=== PATIENT | female | born 1970 | race Asian ===

== ENCOUNTER 2020-05-19 19:51 | Inpatient (IN) | payer OTHER ==
[~2020-05-19] VITALS: Ht 152.4 cm; Wt 66.5 kg
[2020-05-19] MEDS ORDERED: ASCORBIC ACID 500 MG TAB PO ONE (20:15)
[2020-05-19] MEDS ORDERED: AZITHROMYCIN 500MG/ 250ML 250 ML IV ONE (20:15)
[2020-05-19] MEDS ORDERED: PANTOPRAZOLE 40 MG/10 ML VIAL INJ IV ONE (20:15)
[2020-05-19] MEDS ORDERED: ZINC SULFATE 220mg CAP or TAB PO ONE (20:15)
[2020-05-19] MEDS ORDERED: methylPREDNISolone SOD SUCC 125 MG/2 ML VL IV ONE (20:15)
[2020-05-19] MEDS ORDERED: ACETAMINOPHEN 500 MG TAB PO ONE (21:14)
[2020-05-19] MEDS ORDERED: SODIUM CHLORIDE 0.9% 1,000 ML IV SCH (22:12)
[2020-05-19] MEDS ORDERED: ACETAMINOPHEN 325 MG TAB PO PRN (22:15)
[2020-05-19] MEDS ORDERED: NITROGLYCERIN 0.4 MG SL TAB SL PRN (22:15)
[2020-05-19] MEDS ORDERED: TEMAZEPAM 15 MG CAP PO PRN (22:15)
[2020-05-19] MEDS ORDERED: ONDANSETRON HCL 4 MG/2 ML VIAL IV PRN (22:15)
[2020-05-19] MEDS ORDERED: MORPHINE SULF INJ 2 MG/ML SYRINGE 1ML IV PRN (22:15)
[2020-05-19 22:30] LABS: Basophils # (auto) 0 10 ^3/uL (0-0.2); Basophils % (auto) 0.2 % (0.0-2.0); Eosinophils # (auto) 0 10 ^3/uL (0-0.8); Hematocrit 43.8 % (36.0-46.0); Hemoglobin 14.7 g/dL (12.2-16.2); Lymphocytes # (auto) 0.9 10 ^3/uL (0.4-5.4); Lymphocytes % (auto) 12.1 % (10.0-50.0); Mean Corpuscular Hemoglobin 29.7 pg (28.0-32.0); Mean Corpuscular Hgb Conc. 33.5 g/dL (32.0-36.0); Mean Corpuscular Volume 88.5 fL (80.0-100.0); Monocytes # (auto) 0.4 10 ^3/uL (0-1.3); Monocytes % (auto) 5.6 % (0.0-12.0); Neutrophils # (auto) 6.3 10 ^3/uL (1.6-8.6); Neutrophils % (auto) 82.1 % (37.0-80.0); Nucleated Red Blood Cells % 0.1 %; Platelet Count (auto) 222 10^3/uL (140-450); Red Blood Cells 4.95 10^6/uL (4.0-5.20); Red Cell Distribution Width 13.1 % (11.8-14.3); White Blood Cell 7.6 10^3/uL (4.4-10.8)
[2020-05-19 22:49] LABS: Albumin 3.3 g/dL (3.4-5.0); Calcium 8.5 mg/dL (8.5-10.1); Potassium 3.2 mmol/L (3.5-5.1)
[2020-05-19 22:58] LABS: BUN/Creatinine Ratio 8.3; Bilirubin, Total 0.5 mg/dL (0.2-1.0); CRP High Sensitivity 9.78 mg/dL (< 0.3)
[2020-05-19] MEDS ORDERED: POTASSIUM CHL 20 Meq TABLET PO ONE (23:15)
[2020-05-20] VITALS (8 sets, daily range): BP systolic 99–147; BP diastolic 64–75
[2020-05-20] MEDS ORDERED: ACETAMINOPHEN 325 MG TAB PO ONE
--- NOTE | 2020-05-20 00:20 | NUR ---
Telemetry admit from ER DE BROWN admitted to Telemetry unit after SBAR received. Patient oriented to JOSEPH PINA, RN primary RN, unit, room, bed, and unit policies regarding patient care and visiting hours. Patient now on continuous telemetry monitoring, tele box # [id number] and telemetry reading on arrival to unit is sinus rhythm in the 90s. Patient placed on bedside oxygen 2L, weighed by bedscale and encouraged to call if they need something. All questions and concerns addressed, patient verbalized understanding.
--- NOTE | 2020-05-20 01:00 | NUR ---
PATIENT VERBALIZED THAT SHE HAS TAKES NO HOME MEDICATIONS AND HAS NO RELEVANT FAMILY HISTORY
--- NOTE | 2020-05-20 02:00 | NUR ---
MD Called/paged Hospitalist called. Waiting for call back. Continue care.
--- NOTE | 2020-05-20 02:56 | NUR ---
returned call Hospitalist Ricco Torres returned call, updated on patient status and reason for call, orders received and verified. Continue care.
[2020-05-20] MEDS: ALBUTEROL SULF HFA 90MCG INH 200DOSE IN SCH ×3 (07:07→21:52)
--- NOTE | 2020-05-20 07:18 | NUR ---
CLOSING SHIFT NOTE ENDORSED CARE TO DAY SHIFT RN
[2020-05-20 07:31] LABS: Basophils # (auto) 0 10 ^3/uL (0-0.2); Basophils % (auto) 0.1 % (0.0-2.0); Eosinophils # (auto) 0 10 ^3/uL (0-0.8); Hematocrit 43.2 % (36.0-46.0); Hemoglobin 14.7 g/dL (12.2-16.2); Lymphocytes # (auto) 0.4 10 ^3/uL (0.4-5.4); Lymphocytes % (auto) 4.5 % (10.0-50.0); Mean Corpuscular Hemoglobin 30.2 pg (28.0-32.0); Mean Corpuscular Volume 88.7 fL (80.0-100.0); Monocytes # (auto) 0.2 10 ^3/uL (0-1.3); Monocytes % (auto) 1.9 % (0.0-12.0); Neutrophils # (auto) 8.9 10 ^3/uL (1.6-8.6); Neutrophils % (auto) 93.5 % (37.0-80.0); Platelet Count (auto) 237 10^3/uL (140-450); Red Blood Cells 4.88 10^6/uL (4.0-5.20); Red Cell Distribution Width 13.3 % (11.8-14.3); White Blood Cell 9.5 10^3/uL (4.4-10.8)
[2020-05-20 07:43] LABS: Albumin 3.1 g/dL (3.4-5.0); Calcium 8.7 mg/dL (8.5-10.1); Potassium 3.3 mmol/L (3.5-5.1)
[2020-05-20 07:46] LABS: Bilirubin, Total 0.5 mg/dL (0.2-1.0); Total Protein 8.1 g/dL (6.4-8.2)
--- NOTE | 2020-05-20 08:00 | NUR ---
ASSESSMENT NOTE PT IS ALERT ORIENTED X4, RESTING IN BED COMFORTABLY, GENERALIS WEAKNESS NOTED, ABLE TO SELF REPOSITION A ND VERBALIS HER DEMANDS, OXYGEN 1 L NC, PAIN 0/10 AT THIS TIME, CALL LIGHT WITHIN REACH
--- NOTE | 2020-05-20 08:30 | NUR ---
ROOM AIR SATURATION IS 89 TO 91 % ON OXYGEN 1 L NC PT SAT AT 95-96 %
[2020-05-20] MEDS: DexAMETHasone SOD PHOS 10MG/1ML VIAL INJ IV SCH (09:47)
[2020-05-20] MEDS: DOXYCYCLINE 100MG/250ML 250 ML IV SCH ×2 (09:47→22:13)
[2020-05-20] MEDS: ZINC SULFATE 220mg CAP or TAB PO SCH (09:47)
[2020-05-20] MEDS: FAMOTIDINE 20 MG TAB PO SCH ×2 (09:48→22:13)
[2020-05-20] MEDS: ASCORBIC ACID 1,000 MG TAB PO SCH (09:48)
[2020-05-20] MEDS: ENOXAPARIN SOD 40 MG/0.4 ML SYRINGE SC SCH (09:48)
[2020-05-20] MEDS: CHOLECALCIFEROL (VITD3) 2,000 UNIT CAP PO SCH (09:48)
--- NOTE | 2020-05-20 10:00 | NUR ---
TRANSFER PT TO ROOM 2445, IN NEED TO USE THE ROOM FOR ANOTHER PT TO BE CLOSE TO THE NURSING STATION
--- NOTE | 2020-05-20 10:30 | NUR ---
INCENTIVE SPIROMETER EDUCATED PT OF HOW TO USE THE IS MACHINE, EXPLAIN TO PT WHY, VERBALIS UNDERSTANDING
--- NOTE | 2020-05-20 13:10 | NUR ---
DR BLEDSOE AT BED SIDE FOLLOWING UP ON PT, AWARE OF PT VS, LABS, SATURATIONS
--- NOTE | 2020-05-20 14:00 | NUR ---
PT IS INCONTINENT IN URINE, STATED WHEN I COUGH , IT JUST COME OUT> NEW ABSORBANT PADS GIVEN TO PT
[2020-05-20] MEDS ORDERED: POTASSIUM EFFERVESENT TAB 25 MEQ GT ONE (18:45)
--- NOTE | 2020-05-20 18:50 | NUR ---
PT CONTINUE STABLE, CONTINUE MONITORING
--- NOTE | 2020-05-20 19:25 | NUR ---
OPENING SHIFT NOTE: Assumed care of patient. Patient awake, alert and oriented x 4. No s/s of SOB or distress, patient denies pain complains of feeling fatigued. Respirations even and unlabored, O2 saturation 96% on 1L NC. Bed in lowest locked position with two side rails raised and call ward within reach. Instructed on POC and encouraged to call for assistance, all questions and concerns addressed, patient verbalizes understanding. Will continue to monitor Q1 hr and PRN.
--- NOTE | 2020-05-20 23:30 | NUR ---
PATIENT HAVING COUGHING FIT AND STATES "I CAN'T BREATHE", O2 SATURATION 90% ON 1L NC AND RESPIRATIONS 38 BPM, INCREASED O2 TO 4L NC AND INSTRUCTED PATIENT TO SELF PRONE. AFTER SELF PRONING PATIENT VERBALIZES REDUCED SOB AND COUGHING. O2 SATURATION 95% AND RESPIRATIONS 28 BPM, WILL CONTINUE TO MONITOR.
[2020-05-21 05:00] VITALS: BP 100/60
[2020-05-21] MEDS: ALBUTEROL SULF HFA 90MCG INH 200DOSE IN SCH ×3 (06:46→21:27)
[2020-05-21 07:17] LABS: Basophils # (auto) 0 10 ^3/uL (0-0.2); Basophils % (auto) 0.1 % (0.0-2.0); Eosinophils # (auto) 0 10 ^3/uL (0-0.8); Hematocrit 42.5 % (36.0-46.0); Hemoglobin 13.9 g/dL (12.2-16.2); Lymphocytes # (auto) 1.1 10 ^3/uL (0.4-5.4); Lymphocytes % (auto) 8.6 % (10.0-50.0); Mean Corpuscular Hemoglobin 29.1 pg (28.0-32.0); Mean Corpuscular Hgb Conc. 32.8 g/dL (32.0-36.0); Mean Corpuscular Volume 88.7 fL (80.0-100.0); Monocytes # (auto) 0.6 10 ^3/uL (0-1.3); Monocytes % (auto) 5.2 % (0.0-12.0); Neutrophils # (auto) 10.7 10 ^3/uL (1.6-8.6); Neutrophils % (auto) 86.1 % (37.0-80.0); Nucleated Red Blood Cells % 0.1 %; Platelet Count (auto) 265 10^3/uL (140-450); Red Blood Cells 4.79 10^6/uL (4.0-5.20); Red Cell Distribution Width 13.3 % (11.8-14.3); White Blood Cell 12.4 10^3/uL (4.4-10.8)
[2020-05-21 07:31] LABS: Calcium 8.5 mg/dL (8.5-10.1); Potassium 3.6 mmol/L (3.5-5.1)
[2020-05-21 07:33] LABS: BUN/Creatinine Ratio 14.3
--- NOTE | 2020-05-21 08:00 | NUR ---
ASSESSMENT NOTE PT IS ALERT ORIENTED X4, RESTING IN BED IN LOW IGNACIO POSITION, PT APPEAR VERY FATIGUE AND WEAK, PT STATED I FEEL VERY TIRED >, OCCASIONAL COUGH NOTED, PT MADE AWARE THAT THE HOSPITAL LIST WILL BE HERE SOON AND I WILL GET FOR HER A COUGH MEDICINE, PAIN 0/10, PT CONTINUE INCONTINENT IN URINE AT ALL TIMES, STATED EVERY TIME I COUGH, THIS IS HAPPENED, I NEED SOMETHING FOR IT > SUPPORT GIVEN TO PT, CONTINUE ON FALL RISK PRECAUTIONS, CALL LIGHT WITHIN REACH
[2020-05-21 09:00] VITALS: BP 98/65
[2020-05-21] MEDS: DOXYCYCLINE 100MG/250ML 250 ML IV SCH ×2 (09:45→21:39)
[2020-05-21] MEDS: DexAMETHasone SOD PHOS 10MG/1ML VIAL INJ IV SCH (09:45)
[2020-05-21] MEDS: ZINC SULFATE 220mg CAP or TAB PO SCH (09:45)
[2020-05-21] MEDS: ENOXAPARIN SOD 40 MG/0.4 ML SYRINGE SC SCH (09:46)
[2020-05-21] MEDS: CHOLECALCIFEROL (VITD3) 2,000 UNIT CAP PO SCH (09:46)
[2020-05-21] MEDS: ASCORBIC ACID 1,000 MG TAB PO SCH (09:46)
[2020-05-21] MEDS: FAMOTIDINE 20 MG TAB PO SCH ×2 (09:46→21:39)
[2020-05-21] MEDS: guaiFENesin-CODEINE Liq 5 ML UD GT PRN ×2 (10:55→21:40)
--- NOTE | 2020-05-21 11:20 | NUR ---
DR BLEDSOE AT BED SIDE FOLLOWING UP ON PT, SUPPORT PT ABOUT THE STRESS INCONTINENT, INFORM PT THAT IT WILL GET BETTER WHEN SHE START FEELING WELL
--- NOTE | 2020-05-21 11:51 | NUR ---
PT OUT OF BED, SITTING ON CHAIR AT BED SIDE
[2020-05-21 13:00] VITALS: BP 97/66
--- NOTE | 2020-05-21 13:00 | NUR ---
PT IS BACK TO BED, NO DISTRESS NOTED, CONTINUE MONITORING
[2020-05-21 16:46] VITALS: BP 98/66
--- NOTE | 2020-05-21 17:00 | NUR ---
PT IS RESTING IN BED, CONTINUE FEELING WEAK, DENIES ANY COUGH AT THIS TIME
--- NOTE | 2020-05-21 18:41 | NUR ---
PT IS SITTING UP EATING DINNER, NO DISTRESS NOTED, CONTINUE MONITORING
--- NOTE | 2020-05-21 18:56 | NUR ---
URINE SAMPLE SENT TO LAB
--- NOTE | 2020-05-21 18:56 | NUR ---
PT CONTINUE TABLE, CONTINUE MONITORING
--- NOTE | 2020-05-21 19:12 | NUR ---
OPENING SHIFT NOTE: Assumed care of patient. Patient is awake, alert and oriented x 4, no s/s of SOB or distress, patient denies pain. Bed in lowest locked position with two side rails raised and call ward within reach. Instructed on POC and encouraged to call for assistance, all questions and concerns addressed, patient verbalizes understanding. Will continue to monitor Q1 hr and PRN.
[2020-05-21 20:00] VITALS: BP 98/62
[2020-05-21 22:00] VITALS: BP 98/62
--- NOTE | 2020-05-22 00:03 | NUR ---
IV Patient states "I feel like my arm is on fire." Left upper extremity slightly swollen, pink, and hot to the touch above IV site. Left AC 20 gauge IV discontinued using clean technique, catheter tip intact and pressure dressing applied and warm compress applied to upper arm. Patient tolerated well. New 20 gauge IV inserted to the right AC using clean technique. Patient tolerated well, will continue to monitor.
[2020-05-22 05:00] VITALS: BP 98/74
[2020-05-22 06:37] LABS: Basophils # (auto) 0 10 ^3/uL (0-0.2); Basophils % (auto) 0.1 % (0.0-2.0); Eosinophils # (auto) 0 10 ^3/uL (0-0.8); Hematocrit 40.4 % (36.0-46.0); Hemoglobin 13.2 g/dL (12.2-16.2); Lymphocytes # (auto) 1.4 10 ^3/uL (0.4-5.4); Lymphocytes % (auto) 16.3 % (10.0-50.0); Mean Corpuscular Hemoglobin 29.2 pg (28.0-32.0); Mean Corpuscular Hgb Conc. 32.7 g/dL (32.0-36.0); Mean Corpuscular Volume 89.2 fL (80.0-100.0); Monocytes # (auto) 0.8 10 ^3/uL (0-1.3); Monocytes % (auto) 9.6 % (0.0-12.0); Neutrophils # (auto) 6.2 10 ^3/uL (1.6-8.6); Nucleated Red Blood Cells % 0.1 %; Platelet Count (auto) 284 10^3/uL (140-450); Red Blood Cells 4.53 10^6/uL (4.0-5.20); Red Cell Distribution Width 13.2 % (11.8-14.3); White Blood Cell 8.4 10^3/uL (4.4-10.8)
[2020-05-22] MEDS: ALBUTEROL SULF HFA 90MCG INH 200DOSE IN SCH ×3 (06:48→22:43)
[2020-05-22 06:50] LABS: Calcium 8.6 mg/dL (8.5-10.1); Potassium 3.6 mmol/L (3.5-5.1)
[2020-05-22 06:53] LABS: BUN/Creatinine Ratio 20.4
--- NOTE | 2020-05-22 07:09 | NUR ---
URINE RESULTS FOLLOW UP THERE IS NO RESULTS NOTED, SPOKE WITH KIN IN THE LAB , SAID THAT SHE HAVE NO EXPLANATION FOR IT, CHECK ORDERS AGAIN, NOTE THAT THE ORDER BEEN DISCONTINUE WITH ER , PUT THE ORDERS BACK IN AGAIN IN THE [facility]
--- NOTE | 2020-05-22 08:00 | NUR ---
ASSESSMENT NOTE PT IS ALERT ORIENTED X4, CONTINUE FEELING VERY TIRED, ASSISTED NEEDED AT ALL TIMES, OXYGEN 2 L NC SAT AT 97%, ABLE TO SELF REPOSITION AND VERBALIS HER NEEDS, PT CONTINUE INCONTINENT IN URINE, KEPT CLEAN AND DRY AT ALL TIMES, URINE APPEAR DARK COLOR, PAIN 0/10 AT THIS TIME, CALL LIGHT WITHIN REACH
[2020-05-22 08:49] VITALS: BP 99/57
--- NOTE | 2020-05-22 09:30 | NUR ---
URINE SAMPLE SENT AGAIN TO THE LAB
[2020-05-22] MEDS: DexAMETHasone SOD PHOS 10MG/1ML VIAL INJ IV SCH (09:44)
[2020-05-22] MEDS: DOXYCYCLINE 100MG/250ML 250 ML IV SCH ×2 (09:44→21:26)
[2020-05-22] MEDS: ENOXAPARIN SOD 40 MG/0.4 ML SYRINGE SC SCH (09:45)
[2020-05-22] MEDS: CHOLECALCIFEROL (VITD3) 2,000 UNIT CAP PO SCH (09:45)
[2020-05-22] MEDS: ZINC SULFATE 220mg CAP or TAB PO SCH (09:45)
[2020-05-22] MEDS: FAMOTIDINE 20 MG TAB PO SCH ×2 (09:45→21:27)
[2020-05-22] MEDS: ASCORBIC ACID 1,000 MG TAB PO SCH (09:45)
[2020-05-22 10:00] LABS: Urine Bacteria NONE SEEN /hpf (None Seen); Urine Blood Negative /uL (Negative); Urine Mucus FEW (None Seen); Urine WBC 2 /hpf (0 - 5)
--- NOTE | 2020-05-22 12:26 | NUR ---
DR BLEDSOE IS HERE REVIEWING [facility] LAB RESULTS, NEW ORDERS OBTAIN
[2020-05-22] MEDS ORDERED: SODIUM CHLORIDE 0.9% 1,000 ML IV ONE (12:30)
[2020-05-22 13:00] VITALS: BP 110/67
[2020-05-22 16:58] VITALS: BP 94/55
--- NOTE | 2020-05-22 17:00 | NUR ---
DR RODRIGUEZ IS HERE FOLLOWING UP ON PT, PT ON ROOM AIR SAT AT 94 %
--- NOTE | 2020-05-22 18:26 | NUR ---
PT CONTINUE STABLE, CONTINUE MONITORING.
--- NOTE | 2020-05-22 18:55 | NUR ---
IV insertion IV access obtained, via clean sterile technique by inserting 22 gauge catheter at after attempt(s). IV secured properly. No trauma to site. Patient tolerated procedure well. OLD IV AT RT AC WRIEST REMOVED AFTER IT SHOWS SIGNS OF INFILTRATION
--- NOTE | 2020-05-22 19:15 | NUR ---
OPENING SHIFT NOTE: Assumed care of patient. Patient awake, alert and oriented x 4, no s/s of SOB or distress, patient denies pain. O2 saturations 99% on 2L NC, respirations even and unlabored. Bed in lowest locked position with two side rails raised and call ward within reach. Instructed on POC and encouraged to call for assistance, all questions and concerns addressed, will continue to monitor Q1 hr and PRN.
[2020-05-22 20:00] VITALS: BP 113/70
--- NOTE | 2020-05-22 20:30 | NUR ---
SPOKE WITH FAMILY Boyfriend Jerrod called for update on patient. Password provided and boyfriend updated on POC. Boyfriend stated that himself and the patient went to a drive up COVID-19 testing clinic last week and he received the results today and both results were negative. All questions and concerns addressed.
[2020-05-22 22:00] VITALS: BP 113/70
[2020-05-23] VITALS (7 sets, daily range): BP systolic 113–130; BP diastolic 70–76
[2020-05-23] MEDS: ALBUTEROL SULF HFA 90MCG INH 200DOSE IN SCH ×3 (07:26→14:21)
--- NOTE | 2020-05-23 07:26 | NUR ---
RT NOTE: PT REFUSED MDI AT THIS TIME. NO SIGNS OF RESPIRATORY DISTRESS NOTED. ON 1LNC SPO2 96 HR 71 RR 16. PT AWARE I WILL RETURN FOR NEXT SCHEDULED TX. WILL CONTINUE TO MONITOR.
--- NOTE | 2020-05-23 08:10 | NUR ---
OPENING SHIFT NOTE Assumed care of patient. Patient is awake, and alert and oriented x 4. No s/s of SOB or distress. Patient denies pain. Bed in lowest locked position with side rails raised x2. Call ward within reach. Instructed on POC and encouraged to call for assistance. PT demonstrated understanding. Also spoke with daughter who relayed information to pt. All questions and concerns addressed, patient verbalizes understanding. Will continue to monitor Q1 hr and PRN.
[2020-05-23 08:46] LABS: Basophils # (auto) 0 10 ^3/uL (0-0.2); Basophils % (auto) 0.1 % (0.0-2.0); Eosinophils # (auto) 0 10 ^3/uL (0-0.8); Eosinophils % (auto) 0.1 % (0.0-7.0); Hematocrit 37.9 % (36.0-46.0); Hemoglobin 12.7 g/dL (12.2-16.2); Lymphocytes # (auto) 1.9 10 ^3/uL (0.4-5.4); Lymphocytes % (auto) 26.1 % (10.0-50.0); Mean Corpuscular Hgb Conc. 33.5 g/dL (32.0-36.0); Mean Corpuscular Volume 89.4 fL (80.0-100.0); Monocytes # (auto) 0.9 10 ^3/uL (0-1.3); Monocytes % (auto) 11.9 % (0.0-12.0); Neutrophils # (auto) 4.5 10 ^3/uL (1.6-8.6); Neutrophils % (auto) 61.8 % (37.0-80.0); Nucleated Red Blood Cells % 0.1 %; Platelet Count (auto) 298 10^3/uL (140-450); Red Blood Cells 4.24 10^6/uL (4.0-5.20); White Blood Cell 7.3 10^3/uL (4.4-10.8)
[2020-05-23 09:00] LABS: Potassium 3.5 mmol/L (3.5-5.1)
[2020-05-23 09:08] LABS: Albumin 2.5 g/dL (3.4-5.0); BUN/Creatinine Ratio 17.9; Bilirubin, Total 0.4 mg/dL (0.2-1.0); Calcium 8.5 mg/dL (8.5-10.1); Total Protein 6.7 g/dL (6.4-8.2)
[2020-05-23] MEDS: ZINC SULFATE 220mg CAP or TAB PO SCH (09:30)
[2020-05-23] MEDS: ENOXAPARIN SOD 40 MG/0.4 ML SYRINGE SC SCH (09:30)
[2020-05-23] MEDS: DexAMETHasone SOD PHOS 10MG/1ML VIAL INJ IV SCH (09:30)
[2020-05-23] MEDS: CHOLECALCIFEROL (VITD3) 2,000 UNIT CAP PO SCH (09:31)
[2020-05-23] MEDS: FAMOTIDINE 20 MG TAB PO SCH ×2 (09:31→21:39)
[2020-05-23] MEDS: ASCORBIC ACID 1,000 MG TAB PO SCH (09:32)
[2020-05-23] MEDS: DOXYCYCLINE 100MG/250ML 250 ML IV SCH ×2 (09:33→21:39)
--- NOTE | 2020-05-23 14:00 | NUR ---
Est energy needs [id number] kcal (25-27 kcal/kg BW 66.5kg) Est protein needs 53-67g (0.8-1g/kg BW 66.5kg) Will reassess summren. Addendum: 05/23/20 at [address] Amended: Links added.
--- NOTE | 2020-05-23 14:11 | NUR ---
RT NOTE: PT REFUSED TX AT THIS TIME. PT IS LABORED DUE TO HAVING JUST GONE TO THE BATHROOM. SPO2 93 HR 65 RR 26. PT AWARE RESPIRATORY WILL BE BACK FOR NEXT SCHEDULED TX. WILL CONTINUE TO MONITOR.
[2020-05-23] MEDS ORDERED: FUROSEMIDE 20 MG/2 ML VIAL IV ONE (16:15)
[2020-05-23] MEDS ORDERED: POTASSIUM CHL 20 Meq TABLET PO ONE (16:15)
--- NOTE | 2020-05-23 16:30 | NUR ---
PLACED PT ON RA. PT DID NOT TOLERATE. STATED SHE FELT SOB. O2 SAT WAS 92 WHILE RESTING. IS AWARE.
--- NOTE | 2020-05-23 19:22 | NUR ---
OPENING SHIFT NOTE: Assumed care of patient. Patient is awake, alert, and oriented x 4. Patient is on 1 LPM via NC with O2 saturations 97%. No s/s of respiratory distress. Respirations are regular and non-labored. No nausea, vomiting, or pain reported. Bed in lowest locked position, 2 side rails raised, call ward is within reach. 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 Leads placed correctly. POC discussed with the patient. Instructed to call for assistance as needed. Will continue to monitor Q1 hr and PRN.
--- NOTE | 2020-05-23 21:50 | NUR ---
PT REFUSED MDI. PT DENIES SOB. SATS 97% ON 1LNC.
[2020-05-24 05:00] VITALS: BP 131/72
--- NOTE | 2020-05-24 08:04 | NUR ---
OPENING SHIFT NOTE Resumed care of patient. Patient is awake, and alert and oriented. PT is eating breakfast comfortably on RA. No s/s of SOB or distress. Bed in lowest and locked position with side rails raised x2. Call ward within reach. Instructed on POC and encouraged to call for assistance, all questions and concerns addressed, patient verbalizes understanding. Will continue to monitor Q1 hr and PRN.
[2020-05-24 09:00] VITALS: BP 115/77
[2020-05-24] MEDS ORDERED: CHOLECALCIFEROL (VITD3) 1,000UNIT=25mCg TAB PO SCH (10:30)
[2020-05-24] MEDS: ZINC SULFATE 220mg CAP or TAB PO SCH (10:55)
[2020-05-24] MEDS: DOXYCYCLINE 100MG/250ML 250 ML IV SCH (10:55)
[2020-05-24] MEDS: ASCORBIC ACID 1,000 MG TAB PO SCH (10:55)
[2020-05-24] MEDS: DexAMETHasone SOD PHOS 10MG/1ML VIAL INJ IV SCH (10:55)
[2020-05-24] MEDS: ENOXAPARIN SOD 40 MG/0.4 ML SYRINGE SC SCH (10:55)
[2020-05-24] MEDS: FAMOTIDINE 20 MG TAB PO SCH (10:55)
[2020-05-24] MEDS ORDERED: ASCO10003 PO (11:40)
[2020-05-24] MEDS ORDERED: ZINC220T6 PO (11:40)
[2020-05-24] MEDS ORDERED: METH4PAK PO (11:40)
[2020-05-24] MEDS ORDERED: PANT40TA2 PO (11:40)
[2020-05-24 13:00] VITALS: BP 108/73
[2020-05-24] MEDS: ALBUTEROL SULF HFA 90MCG INH 200DOSE IN SCH ×2 (14:00→16:32)
--- NOTE | 2020-05-24 14:30 | NUR ---
PT ASKING TO GO HOME TODAY. NOTIFIED HOME O2 WILL BE DELIVERED TO HER HOME TOMORROW 05/25. PER MD SMALLS, PT CAN GO HOME TODAY IF SHE FEELS COMFORTABLE ON RA. AMBULATED PT ON RA O2 STAYED AT 92%. WILL PROCEED WITH DC.
--- NOTE | 2020-05-24 14:42 | NUR ---
REPAIR CLERK WEEKEND Received a page from RN Will regarding social service consult for home oxygen. Advised RN Will to fax clinical information to [facility] and I will follow up with [facility]. Received a second Page from RN Will advising me patient wants to go home without her home oxygen and per Dr. Mann patient can go home if she feels comfortable to be discharge with out oxygen. Informed RN Will it is not a safe discharge but if doctor says its okay I will inform [facility]. Contact [facility] regarding home oxygen for patient. Per Pauline with [facility] they will deliver home oxygen to home between 4-6hrs from now.
[2020-05-24 17:00] VITALS: BP 110/70
--- NOTE | 2020-05-25 11:51 | NUR ---
I called patient-spoke with boyfriend Jerrod-he verified that they did receive the home oxygen about 30 minutes ago.
== END 2020-05-24 17:15 | disposition home or self-care (01) | DRG 177 ==
LOC: ER 19:51 → TELE 19:52 → TELE-EAST 23:35 → TELE-E-ADS 05-20 10:04
PROVIDERS: ADMIT Nurse Practitioner; ATTEND Internal Medicine Pulmonary Disease
DX: U07.1 COVID-19 (principal); J12.89 Other viral pneumonia; J96.00 Acute respiratory failure, unspecified whether with hypoxia or hypercapnia; E44.0 Moderate protein-calorie malnutrition; E87.6 Hypokalemia; R32 Unspecified urinary incontinence; Z80.9 Family history of malignant neoplasm, unspecified; Z82.49 Family history of ischemic heart disease and other diseases of the circulatory system
CPT/HCPCS: 36415; 71045; 80048; 80053; 81001; 82728; 83605; 83615; 83735; 84443; 85025; 85379; 86141; 87040; 93005; 94640; C9113; G0378; J1100; J3490